=== PATIENT | female | born 1990 | race Caucasian/White ===

== ENCOUNTER 2019-12-15 20:05 | Emergency (ER) | payer SELFPAY ==
[~2019-12-15] VITALS: Ht 154.9 cm; Wt 55.3 kg
--- NOTE | 2019-12-15 20:30 | NUR ---
ED Nurse Note: Patient walked into ED from home d/t right eye pain, patient unable to open right eye. Patient stated she had eyelash extensions done yesterday. Patient rates pain 8/10. Patient aao x 4 and ambulatory. No acute distress noted.
[2019-12-15] MEDS ORDERED: Tetracaine 0.5% Opth 4ml Soln RIGHT EYE ONE (20:45)
[2019-12-15] MEDS ORDERED: Fluorescein Strips RIGHT EYE ONE (20:45)
[2019-12-15 20:47] VITALS: BP 122/82
[2019-12-15] MEDS ORDERED: ACETAMINOPHEN-1 EAC1 ORAL (20:56)
[2019-12-15] MEDS ORDERED: GENTAK3.5 GM OP (20:56)
[2019-12-15] MEDS ORDERED: Fluorescein Strips LEFT EYE ONE (21:00)
[2019-12-15 21:23] VITALS: BP 120/85
--- NOTE | 2019-12-15 21:23 | NUR ---
ER DISCHARGE NOTE: Patient is cleared to be discharged per ERMD, pt is aox4, on room air, with stable vital signs. pt was given dc and prescription instructions, pt was able to verbalize understanding, pt id band removed. pt is able to ambulate with steady gait. pt took all belongings. pt discharge in stable condition accompanied by .
--- NOTE | 2019-12-16 06:58 | Emergency Room Report ---
History of Present Illness General Chief Complaint: Eye Problems Source: Patient Present Illness HPI Patient is a 28-year-old female presents after increased right eye discomfort and foreign body sensation. Patient reports having recent had artificial eyelashes attached. She states adhesive had been used. Denies any visual changes. She states she been having increased pain with eye opening. Denies prior medical history. Denies wear contact lenses. Allergies: Coded Allergies: No Known Allergies (Unverified , 12/15/19) Patient History Past Medical History: see triage record Last Menstrual Period: 10/29/19 Now: No Reviewed Nursing Documentation: PMH: Agreed; PSxH: Agreed Nursing Documentation-PMH Past Medical History: No Stated History Review of Systems All Other Systems: negative except mentioned in HPI Physical Exam Vital Signs Date Time Temp Pulse Resp B/P (MAP) Pulse Ox O2 Delivery O2 Flow Rate FiO2 12/15/19 20:24 97.9 79 22 116/74 (88) 98 Room Air General Appearance: well appearing, no apparent distress, alert, GCS 15 Head: normocephalic, atraumatic Eyes: bilateral eye other - Right eyelid normal, conjunctiva pink, fluorescein dye uptake to the inferior aspect of the right eye approximately 6:00 ENT: hearing grossly normal, normal voice Neck: full range of motion, supple Respiratory: lungs clear, no respiratory distress, speaking full sentences Musculoskeletal: no calf tenderness Neurologic: normal gait Psychiatric: mood/affect normal Skin: no rash Medical Decision Making Diagnostic Impression: Primary Impression: Corneal abrasion, right ER Course Patient presented for right eye pain. Differential diagnosis include was not limited to foreign body, corneal abrasion, corneal ulcer among others. Patient has a benign exam and does not appear to require any imaging or laboratory testing at this time. Tetracaine was administered to the patient's right eye. Patient did not show any evidence of foreign body however there is significant dye uptake consistent with a corneal abrasion. Patient was advised ophthalmology follow-up within the next 1 to 2 days. She is advised to return if worse. Last Vital Signs Date Time Temp Pulse Resp B/P (MAP) Pulse Ox O2 Delivery O2 Flow Rate FiO2 12/15/19 21:23 98.2 75 20 120/85 99 Room Air Status: improved Disposition: HOME, SELF-CARE Condition: Stable Scripts Acetaminophen With Codeine (T#3) (TYLENOL #3 TAB*) Y Tab 2 TAB ORAL Q6H PRN for For Pain, #14 TAB Prov: Michael Sampson MD 12/15/19 Gentamicin Sulfate (GENTAK) 3.5 Gm Oint...g. 3.5 GM OP THREE TIMES A DAY, #3.5 GM Prov: Michael Sampson MD 12/15/19 Referrals: NON PHYSICIAN (PCP) Patient Instructions: Corneal Abrasion Michael Sampson MD Dec 16, 2019 06:58
== END 2019-12-15 21:23 | disposition home or self-care (01) ==
LOC: EMR 20:45
DX: S05.01XA Injury of conjunctiva and corneal abrasion without foreign body, right eye, initial encounter (principal); X58.XXXA Exposure to other specified factors, initial encounter; Y93.9 Activity, unspecified; Y92.9 Unspecified place or not applicable
CPT/HCPCS: 99282

== ENCOUNTER 2020-03-08 18:28 | Emergency (ER) | payer SELFPAY ==
[~2020-03-08] VITALS: Ht 160 cm; Wt 54.4 kg
[~2020-03-08 18:28] MED LIST: ACETAMINOPHEN-1 EAC1 ORAL; GENTAK3.5 GM OP
[2020-03-08 18:30] VITALS: BP 109/66
--- NOTE | 2020-03-08 18:31 | NUR ---
ER Nurse Note: Pt walked in c/o sore throat for 3 days. Pt stated she now notices white spots inside her mouth. Pt stated she has tonsillitis frequently. Pt took Penicillin and amoxicillin in the past for tonsillitis and took leftover Penicillin and amoxicillin. Pt denies difficulty breathing; O2 sat 98% RA.
[2020-03-08] MEDS ORDERED: AUGMENTIN 875-1 EAC1 ORAL (18:49)
[2020-03-08 18:58] VITALS: BP 109/66
--- NOTE | 2020-03-08 18:58 | NUR ---
ER DISCHARGE NOTE: Patient is cleared to be discharged per ERMD, pt is aox4, on room air, with stable vital signs. pt was given dc and prescription instructions, pt was able to verbalize understanding, pt id band removed without complications. pt is able to ambulate with steady gait. pt took all belongings.
--- NOTE | 2020-03-08 19:32 | Emergency Room Report ---
History of Present Illness General Chief Complaint: Sore Throat Source: Patient Present Illness HPI 29-year-old female presents for evaluation of sore throat. Started 3 days ago. Notes white spots inside her throat. Pain is dull, 6 out of 10, nonradiating. Denies cough. Denies fevers or chills. States she has had frequent tonsil infections over the years. Denies runny nose cough or congestion. Denies sick contacts. No other aggravating relieving factors. Denies any other associated symptoms Allergies: Coded Allergies: No Known Allergies (Unverified , 12/15/19) COVID-19 Screening Contact w/high risk pt: No Recent Travel to affected area: No Experienced COVID-19 symptoms?: No Patient History Past Medical History: none Past Surgical History: none Pertinent Family History: none Social History: Denies: smoking, alcohol use, drug use Last Menstrual Period: 02/2020 Now: No Immunizations: UTD Reviewed Nursing Documentation: PMH: Agreed; PSxH: Agreed Nursing Documentation-PMH Past Medical History: No Stated History Review of Systems All Other Systems: negative except mentioned in HPI Physical Exam Vital Signs Date Time Temp Pulse Resp B/P (MAP) Pulse Ox O2 Delivery O2 Flow Rate FiO2 03/08/20 18:17 99.1 100 18 109/66 (80) 98 Room Air Sp02 EP Interpretation: reviewed, normal General Appearance: no apparent distress, alert, GCS 15, non-toxic Head: normocephalic, atraumatic Eyes: bilateral eye normal inspection, bilateral eye PERRL ENT: hearing grossly normal, no angioedema, normal voice, TMs + canals normal, pharyngeal erythema, tonsillar exudate Neck: full range of motion, supple/symm/no masses Respiratory: chest non-tender, lungs clear, normal breath sounds, speaking full sentences Cardiovascular #1: regular rate, rhythm, no edema Cardiovascular #2: 2+ carotid (R), 2+ carotid (L), 2+ radial (R), 2+ radial (L) , 2+ dorsalis pedis (R), 2+ dorsalis pedis (L) Gastrointestinal: normal bowel sounds, non tender, soft, non-distended, no guarding, no rebound Rectal: deferred Genitourinary: normal inspection, no CVA tenderness Musculoskeletal: back normal, normal range of motion, gait/station normal, non- tender Neurologic: alert, motor strength/tone normal, oriented x3, sensory intact, responsive, speech normal Psychiatric: judgement/insight normal, memory normal, mood/affect normal, no suicidal/homicidal ideation Reflexes: 3+ bicep (R), 3+ bicep (L), 3+ tricep (R), 3+ tricep (L), 3+ knee (R) , 3+ knee (L) Skin: no rash Lymphatic: no adenopathy Medical Decision Making Diagnostic Impression: Primary Impression: Pharyngitis Qualified Codes: J02.9 - Acute pharyngitis, unspecified ER Course Hospital Course 29-year-old female presents to ED complaining of sore throat Differential diagnoses include: URI, pharyngitis, otitis media Clinical course Patient placed in isolation tent. I wore full PPE. After initial history, physical exam reveals a female in no acute distress. Bilateral TM unremarkable. There is pharyngeal erythema w/ tonsillar exudates. No lymphadenopathy. Clinical findings consistent with pharyngitis. I discussed findings with patient. Will discharge with antibiotics. Given frequent tonsil infections over the years patient would benefit from ENT evaluation. Patient states she will follow-up with her PMD Diagnosis - pharyngitis Stable and discharged home with prescriptions for augmentin. Instructed to followup with PMD. return to ED if symptoms recur or worsen Last Vital Signs Date Time Temp Pulse Resp B/P (MAP) Pulse Ox O2 Delivery O2 Flow Rate FiO2 03/08/20 18:58 99.1 100 18 109/66 98 Room Air Status: improved Disposition: HOME, SELF-CARE Condition: Stable Scripts Amoxicillin/Potassium Clav 875-125* (AUGMENTIN 875-125 TABLET*) 1 Each Tablet 1 TAB ORAL TWICE A DAY for 7 Days, #14 TAB Prov: Sonny Biggs MD 03/08/20 Referrals: NOT CHOSEN IPA/,REFERRING (PCP) Patient Instructions: Pharyngitis, [id number] Sonny Biggs MD Mar 08, 2020 19:32
== END 2020-03-08 18:58 | disposition home or self-care (01) ==
LOC: EDBD 18:28 → EMR 18:40
DX: J02.9 Acute pharyngitis, unspecified (principal)
CPT/HCPCS: 99282